=== PATIENT | female | born 1975 | race Caucasian/White ===

== ENCOUNTER 2018-03-20 11:23 | Emergency (ER) | payer OTHER ==
[~2018-03-20] VITALS: Ht 162.6 cm; Wt 64.0 kg
[2018-03-20 11:27] VITALS: BP 131/68; PULSE 75; RESP 16; TEMP 98.1; O2SAT 98
[2018-03-20] MEDS ORDERED: CYMB30CA PO (11:36)
[2018-03-20] MEDS ORDERED: IBUP-232 PO (12:20)
[2018-03-20] MEDS ORDERED: BACT800T5 PO (12:20)
[2018-03-20] MEDS ORDERED: CEPH-460 PO (12:20)
[2018-03-20] MEDS ORDERED: NORC5TAB PO (12:20)
--- NOTE | 2018-03-20 12:20 | PD ---
HPI Chief Complaint: Validation Specialist Problem/Complaint Time Seen by Provider: 11:31 Travel History International Travel<30 days: No Contact w/Intl Traveler<30days: No Traveled to known affect area: No History of Present Illness HPI 42-year-old female presents emergency department for evaluation of a painful lesion in her right labia majora that she noticed 4 days ago. Patient states it has grown and become more painful. Pain is constant, throbbing, exacerbated with movement or touch. Denies any fever chills. Denies any injury. Patient does shave her pubic area. She has no other symptoms to report at this time. [facility] Past Medical History Medical History: Denies Significant Hx Tetanus Vaccination: Unknown Influenza Vaccination: Yes ?: Not LMP: 03/06/18 Past Surgical History Section: Yes Other Surgery: Yes Social History Alcohol Use: Yes (occ) Tobacco Use: No Substance Use: No Allergies-Medications (Allergen,Severity, Reaction): Coded Allergies: No Known Allergies (Verified Allergy, Severe, 10/26/06) Reported Meds & Prescriptions Reported Meds & Active Scripts Active [place] (Hydrocodone-Acetaminophen) 5 Mg-325 Mg Tab 1 Tab PO Q6H PRN Ibuprofen 600 Mg Tab 600 Mg PO Q8HR PRN Keflex (Cephalexin) 500 Mg Cap 500 Mg PO Q6H 5 Days Bactrim DS (Sulfamethoxazole-Trimethoprim) 800-160 Mg Tab 1 Tab PO BID Reported Cymbalta DR (Duloxetine HCl) 30 Mg Capdr 30 Mg PO DAILY Review of Systems Except as stated in HPI: all other systems reviewed are Neg Physical Exam Narrative GENERAL: Well-nourished, well-developed female patient in no acute distress SKIN: There is an indurated area in the right labia majora which measures about 2 cm in diameter. It is fluctuant but there is no pointing or drainage. There is a zone of inflammation around it but no lymphangitis. HEAD: Normocephalic. EYES: No scleral icterus. No injection or drainage. NECK: Supple, trachea midline. No JVD or lymphadenopathy. CARDIOVASCULAR: Regular rate and rhythm without murmurs, gallops, or rubs. RESPIRATORY: Breath sounds equal bilaterally. No accessory muscle use. GENITOURINARY: Normal external genitalia with abscess as described above. BACK: Nontender without obvious deformity. No CVA tenderness. Data Data Last Documented VS Vital Signs Date Time Temp Pulse Resp B/P (MAP) Pulse Ox O2 Delivery O2 Flow Rate FiO2 03/20/18 12:45 70 18 132/70 (90) 98 03/20/18 11:27 98.1 Orders Orders Urinalysis - C+S If Indicated (03/20/18 11:30) Ed Urine Pregnancytest Poc (03/20/18 11:30) Wound Culture And Gram Stain (03/20/18 12:00) Ed Discharge Order (03/20/18 12:17) Labs Laboratory Tests Test 03/20/18 12:00 Urine Color LIGHT-YELLOW Urine Turbidity CLEAR Urine pH 7.0 Urine Specific Calvin 1.003 Urine Protein NEG mg/dL Urine Glucose (UA) NEG mg/dL Urine Ketones NEG mg/dL Urine Occult Blood NEG Urine Nitrite NEG Urine Bilirubin NEG Urine Urobilinogen LESS THAN 2.0 MG/DL Urine Leukocyte Esterase NEG Urine WBC LESS THAN 1 /hpf Urine Squamous Epithelial Cells 5 /hpf Urine Bacteria RARE /hpf Microscopic Urinalysis Comment CULT NOT INDICATED MDM Medical Decision Making Medical Screen Exam Complete: Yes Emergency Medical Condition: Yes Medical Record Reviewed: Yes Differential Diagnosis Abscess versus folliculitis versus cyst Narrative Course 42-year-old female presents emergency department for evaluation of a painful lesion on right labia. Physical exam is consistent with an abscess. I&D is complete. Patient is started on oral antibiotics and counseled on care. She agrees to return immediately with acute worsening symptoms. Procedures Procedure Narrative INCISION AND DRAINAGE OF ABSCESS: The area was prepped and was sterilely draped. Topical ethyl chloride was used to anesthetize the area. The area was properly anesthetized. A number 11 scalpel was used to make a 1-cm incision across the area of the abscess. Cultures were obtained. The abscess was drained an irrigated with normal saline. Quarter inch iodoform packing was placed in the wound. Sterile dressing applied. Patient advised to have packing removed in two days. Diagnosis Primary Impression: Abscess of right genital labia Referrals: Primary Care Physician Patient Instructions: Abscess Incision and Drainage (DC), General Instructions Additional Instructions: Warm sits baths Follow-up the primary care provider Remove packing in 48 hours Return immediately with acute worsening symptoms Med/Other Pt SpecificInfo: Prescription(s) given Scripts Hydrocodone-Acetaminophen ([place]) 5 Mg-325 Mg Tab 1 TAB PO Q6H Y for PAIN GREATER THAN 5, #6 TAB 0 Refills Prov: Lesly Ruby 03/20/18 Ibuprofen (Ibuprofen) 600 Mg Tab 600 MG PO Q8HR Y for PAIN, #30 TAB 0 Refills Prov: Lesly Ruby 03/20/18 Cephalexin (Keflex) 500 Mg Cap 500 MG PO Q6H for Infection for 5 Days, #20 CAP 0 Refills Prov: Lesly Ruby 03/20/18 Sulfamethoxazole-Trimethoprim (Bactrim DS) 800-160 Mg Tab 1 TAB PO BID for Infection, #20 TAB 0 Refills Prov: Lesly Ruby 03/20/18 Disposition: 01 DISCHARGE HOME Condition: Stable Lesly Ruby March 20, 2018 12:20
[2018-03-20 12:35] LABS: BACTERIA, URINE RARE /hpf; BILIRUBIN, URINE NEG (NEG); BLOOD, URINE NEG (NEG); GLUCOSE,URINE NEG (NEG); KETONE, URINE NEG (NEG); NITRITE,URINE NEG (NEG); SQUAMOUS EPITHELIAL CELL URINE 5 /hpf (0-5); URINE COLOR LIGHT-YELLOW (YELLW/STRAW); URINE LEUKOCYTE ESTERASE NEG (NEG)
[2018-03-20 12:45] VITALS: BP 132/70
== END 2018-03-20 12:50 | disposition home or self-care (01) ==
LOC: NEPD 11:23
DX: N76.4 Abscess of vulva (principal); B95.61 Methicillin susceptible Staphylococcus aureus infection as the cause of diseases classified elsewhere
CPT/HCPCS: 56405; 81001; 84703; 86403; 87070; 87186; 87205